=== PATIENT | female | born 1930 | race Caucasian/White ===

== ENCOUNTER 2016-12-07 11:11 | Emergency (ER) | payer MEDICARE ==
[~2016-12-07] VITALS: Ht 152.4 cm; Wt 75.0 kg
[2016-12-07] MEDS ORDERED: ATOR40TA75 PO (11:28)
[2016-12-07] MEDS ORDERED: ASPI81TA85 PO (11:28)
[2016-12-07] MEDS ORDERED: LOSA25TA8 PO (11:28)
[2016-12-07] MEDS ORDERED: HYDR12.55 PO (11:28)
[2016-12-07] MEDS ORDERED: CALC600T57 PO (11:28)
[2016-12-07] MEDS ORDERED: NS 500 ML IV ONE (11:30)
[2016-12-07 11:44] LABS: BASO % 0.3 % (0.0-1.0); EOS # 0.1 K/mm3 (0.0-0.50); EOS % 0.6 % (0.0-3.0); LARGE UNSTAINED CELL # 0.1 K/mm3 (0.0-0.4); LYMPH # 3.3 K/mm3 (1.5-4.5); LYMPH % 21.4 % (24.0-44.0); MEAN CORPUSCULAR HEMOGLOBIN 32.9 pg (27.0-33.0); MEAN CORPUSCULAR HGB CONC 33.6 g/dl (32.0-36.5); MEAN CORPUSCULAR VOLUME 97.8 fl (80.0-96.0); MONO # 0.9 K/mm3 (0.0-0.8); MONO % 5.9 % (0.0-5.0); NEUTROPHILS # 10.6 K/mm3 (1.8-7.7); NEUTROPHILS % 70.9 % (36.0-66.0); PLATELET COUNT, AUTOMATED 217 k/mm3 (150-450); RED CELL DISTRIBUTION WIDTH 13.5 % (11.5-14.5)
[2016-12-07 11:58] LABS: INR 0.89
[2016-12-07 12:10] LABS: ALBUMIN 3.5 GM/DL (3.2-5.2); ALBUMIN/GLOBULIN RATIO 1.03 (1.00-1.93); ALKALINE PHOSPHATASE 85 U/L (45-117); ALT/SGPT 18 U/L (12-78); ANION GAP 8 MEQ/L (8-16); AST/SGOT 14 U/L (15-37); BILIRUBIN,DIRECT 0.1 MG/DL (0.0-0.2); BLOOD UREA NITROGEN 22 MG/DL (7-18); CALCIUM LEVEL 8.9 MG/DL (8.8-10.2); CARBON DIOXIDE LEVEL 30 MEQ/L (21-32); CHLORIDE LEVEL 101 MEQ/L (98-107); CREATININE FOR GFR 0.91 MG/DL (0.55-1.02); FREE T4 1.07 NG/DL (0.76-1.46); GLOMERULAR FILTRATION RATE > 60.0 (>32); GLUCOSE, FASTING 114 MG/DL (83-110); POTASSIUM SERUM 3.7 MEQ/L (3.5-5.1); SODIUM LEVEL 139 MEQ/L (136-145); TOTAL PROTEIN 6.9 GM/DL (6.4-8.2)
--- NOTE | 2016-12-07 12:10 | REP ---
PORTABLE CHEST: AP portable view of the chest is performed. There is no acute infiltrate. The heart is normal in size. There are degenerative changes of the spine. There appear to be mild fibrotic changes in the lung bases bilaterally. IMPRESSION: No evidence of acute infiltrate. Signed by Phuc Pfeiffer MD 12/07/2016 05:13 P
[2016-12-07] MEDS ORDERED: ISOVUE-370 76% 100ML VIAL (Q9967) As Ordered ONE (13:57)
--- NOTE | 2016-12-07 15:00 | REP ---
CT ANGIOGRAM CHEST: TECHNIQUE: Axial contrast enhanced images from the thoracic inlet to the upper abdomen using 100 mL Isovue 370 intravenous contrast material with multiplanar reformations. There is no CT evidence of a pulmonary embolism. There is no thoracic aortic aneurysm or dissection. There is no cardiomegaly. There is no pleural or pericardial effusion. Mildly enlarged lymph node in the right infrahilar region measures 1.1 cm in short axis. 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 There is left renal atrophy. IMPRESSION: No CT evidence of pulmonary embolism. Slightly enlarged right infrahilar lymph node 1.1 cm in short axis dimension. Chronic fibrotic changes. Signed by Phuc Pfeiffer MD 12/07/2016 05:15 P
[2016-12-07 16:57] VITALS: BP 160/70
--- NOTE | 2016-12-08 05:56 | ECGEPIP ---
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
--- NOTE | 2016-12-08 06:04 | ECGEPIP ---
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
== END 2016-12-07 16:58 | disposition home or self-care (01) ==
LOC: M ED 14:21
DX: R55 Syncope and collapse (principal); R07.9 Chest pain, unspecified; I51.9 Heart disease, unspecified; I25.2 Old myocardial infarction; I10 Essential (primary) hypertension; E78.5 Hyperlipidemia, unspecified; Z98.61 Coronary angioplasty status; Z79.82 Long term (current) use of aspirin; Z79.899 Other long term (current) drug therapy
CPT/HCPCS: 71010; 71275; 80048; 80076; 82550; 82553; 83690; 83880; 84439; 84443; 84484; 85025; 85610; 85730; 87040; 93005; 93041; 94760; 96360; 99285; Q9967